=== PATIENT | female | born 1990 | race Caucasian/White ===

== ENCOUNTER 2024-07-19 07:29 | Outpatient (CLI) | payer BC, SELFPAY | END 2024-07-19 07:30 | disposition home or self-care (01) | LOC: NFLDREF 07-24 01:10 | PROVIDERS: Visit Provider Obstetrics & Gynecology | DX: N92.6 Irregular menstruation, unspecified (principal) | CPT/HCPCS: 84144 ==

== ENCOUNTER 2024-09-10 09:40 | Outpatient (CLI) | payer BC, SELFPAY | END 2024-09-10 09:41 | disposition home or self-care (01) | LOC: NFLDREF 09-16 15:34 | PROVIDERS: Visit Provider Obstetrics & Gynecology | DX: N97.0 Female infertility associated with anovulation (principal) | CPT/HCPCS: 84144 ==